=== PATIENT | female | born 1965 | race Caucasian/White ===

== ENCOUNTER 2021-10-11 11:27 | Day surgery (SDC) | payer MEDICARE, MEDICAID ==
[~2021-10-11 11:27] MED LIST: Albuterol 0.083% 2.5 MG/3 ML Neb Soln NEB PRN; Bupivacaine 0.5% 30 ML SDV ONE; HYDROmorphone 1 MG/ML Syringe IVPUSH PRN; Lactated Ringers 1,000 ML IV SCH; Lidocaine 2% Jelly 30 ML Tube ONE; Metoclopramide 10 MG/2 ML SDV IVPUSH PRN; Morphine 2 MG/ML SYRINGE IVPUSH PRN; Naloxone 0.4 MG/ML SDV IVPUSH PRN; Ondansetron 4 MG/2 ML SDV IVPUSH PRN; Sodium Chloride 0.9% 10 ML Syringe FLUSH PRN; Sodium Chloride 0.9% 2.5 ML Syringe FLUSH PRN; Sodium Chloride 0.9% 20 ML SDV IV PRN; fentaNYL 100 MCG/2 ML SDV IVPUSH PRN
[2021-10-11] MEDS ORDERED: fentaNYL 100 MCG/2 ML SDV ONE (12:11)
[2021-10-11] MEDS ORDERED: Propofol 200 MG/20 ML SDV ONE (12:11)
[2021-10-11] MEDS ORDERED: Ondansetron 4 MG/2 ML SDV ONE (13:18)
== END 2021-10-11 15:31 | disposition home or self-care (01) ==
LOC: MW.SDS 11:27
PROVIDERS: ATTEND Surgery
DX: D12.5 Benign neoplasm of sigmoid colon (principal); K64.4 Residual hemorrhoidal skin tags; F41.9 Anxiety disorder, unspecified; F32.A Depression, unspecified; F17.210 Nicotine dependence, cigarettes, uncomplicated; J44.9 Chronic obstructive pulmonary disease, unspecified; Z88.8 Allergy status to other drugs, medicaments and biological substances; Z98.890 Other specified postprocedural states
CPT/HCPCS: 00811; J1170; J2405; J2704; J3010; J3490; J7120

== ENCOUNTER 2021-11-24 09:53 | Day surgery (SDC) | payer MEDICARE, MEDICAID ==
[~2021-11-24 09:53] MED LIST changes: -Albuterol 0.083% 2.5 MG/3 ML Neb Soln NEB PRN; -Bupivacaine 0.5% 30 ML SDV ONE; -HYDROmorphone 1 MG/ML Syringe IVPUSH PRN; -Lidocaine 2% Jelly 30 ML Tube ONE; -Metoclopramide 10 MG/2 ML SDV IVPUSH PRN; -Morphine 2 MG/ML SYRINGE IVPUSH PRN; -Naloxone 0.4 MG/ML SDV IVPUSH PRN; -Ondansetron 4 MG/2 ML SDV IVPUSH PRN; +ceFAZolin 1 GM in Premix Bag 1 BAG IV ONE; -fentaNYL 100 MCG/2 ML SDV IVPUSH PRN
[2021-11-24] MEDS ORDERED: HYDROmorphone 1 MG/ML Syringe IVPUSH PRN (10:05)
[2021-11-24] MEDS ORDERED: Ondansetron 4 MG/2 ML SDV IVPUSH PRN (10:05)
[2021-11-24] MEDS ORDERED: fentaNYL 100 MCG/2 ML SDV IVPUSH PRN (10:05)
[2021-11-24] MEDS ORDERED: Albuterol 0.083% 2.5 MG/3 ML Neb Soln NEB PRN (10:05)
[2021-11-24] MEDS ORDERED: Metoclopramide 10 MG/2 ML SDV IVPUSH PRN (10:05)
[2021-11-24] MEDS ORDERED: Naloxone 0.4 MG/ML SDV IVPUSH PRN (10:05)
[2021-11-24] MEDS ORDERED: Bupivacaine 0.5% 10 ML SDV ONE (10:49)
[2021-11-24] MEDS ORDERED: fentaNYL 100 MCG/2 ML SDV ONE (10:52)
[2021-11-24] MEDS ORDERED: Propofol 200 MG/20 ML SDV ONE (10:52)
[2021-11-24] MEDS ORDERED: Rocuronium Bromide 50 MG/5 ML Syringe ONE (10:53)
[2021-11-24] MEDS ORDERED: Midazolam 1 MG/ML 2 ML SDV ONE (10:53)
[2021-11-24] MEDS ORDERED: Esmolol 100 MG/10 ML SDV ONE (10:53)
[2021-11-24] MEDS ORDERED: Dexmedetomidine 200 MCG/2 ML SDV ONE (10:53)
[2021-11-24] MEDS ORDERED: Water For Injection, Sterile 20 ML ONE (10:58)
[2021-11-24] MEDS ORDERED: Ropivacaine 0.5% 5 MG/ML 30 ML SDV ONE (11:17)
[2021-11-24] MEDS ORDERED: Bupivacaine 0.25% 10 ML SDV ONE (11:32)
[2021-11-24] MEDS ORDERED: Dexamethasone 4 MG/ML 5 ML MDV ONE (12:12)
[2021-11-24] MEDS ORDERED: Ketamine HCL/NACL, ISO-OSM 50 MG/5 ML Syringe ONE (12:13)
[2021-11-24] MEDS ORDERED: ePHEDrine 50 MG/ML SDV ONE (12:45)
[2021-11-24] MEDS ORDERED: Ondansetron 4 MG/2 ML SDV ONE (12:45)
[2021-11-24] MEDS ORDERED: Ketorolac 30 MG/ML SDV ONE (12:45)
[2021-11-24] MEDS ORDERED: Sugammadex Sodium 200 MG/2 ML VIAL ONE (12:45)
[2021-11-24] MEDS ORDERED: Octyl 2-Cyanoacrylate 1 Tube ONE (13:09)
== END 2021-11-24 14:39 | disposition home or self-care (01) ==
LOC: MW.SDS 09:53
PROVIDERS: ATTEND Surgery
DX: K40.20 Bilateral inguinal hernia, without obstruction or gangrene, not specified as recurrent (principal); J44.9 Chronic obstructive pulmonary disease, unspecified; F41.9 Anxiety disorder, unspecified; F32.A Depression, unspecified; F17.210 Nicotine dependence, cigarettes, uncomplicated; Z88.1 Allergy status to other antibiotic agents; Z87.19 Personal history of other diseases of the digestive system; Z86.010 Personal history of colon polyps; Z79.899 Other long term (current) drug therapy
CPT/HCPCS: 49505; A9270; J0690; J1100; J1885; J2250; J2405; J2704; J2795; J3010; J3490; J7120; 00830; 64488; C1781

== ENCOUNTER 2022-05-01 16:56 | Emergency (ER) | payer MEDICARE, MEDICAID | END 2022-05-01 17:40 | disposition left against medical advice (07) | LOC: MW.ED 16:56 | DX: Z53.21 Procedure and treatment not carried out due to patient leaving prior to being seen by health care provider (principal) ==

== ENCOUNTER 2022-06-20 17:46 | Emergency (ER) | payer MEDICARE, MEDICAID ==
[2022-06-20] MEDS ORDERED: predniSONE 20 MG Tab PO ONE (19:25)
== END 2022-06-20 19:39 | disposition home or self-care (01) ==
LOC: MW.ED 17:46
DX: R21 Rash and other nonspecific skin eruption (principal); B35.4 Tinea corporis; F17.210 Nicotine dependence, cigarettes, uncomplicated; Z88.1 Allergy status to other antibiotic agents; Z79.899 Other long term (current) drug therapy
CPT/HCPCS: 99282; A9270

== ENCOUNTER 2022-08-19 16:31 | Emergency (ER) | payer MEDICARE, MEDICAID ==
[2022-08-19] MEDS ORDERED: Betamethasone Dipropionate/Clotrimazole 0.05-1% Crm 15 GM Tube TOP STA (18:03)
[2022-08-19 18:30] LABS: CORONAVIRUS COVID-19 NAA NEGATIVE (NEGATIVE); INFLUENZA A NAA NEGATIVE (NEGATIVE); INFLUENZA B NAA NEGATIVE (NEGATIVE); RESPIRATORY SYNCYTIAL VIR NAA NEGATIVE (NEGATIVE)
== END 2022-08-19 19:21 | disposition home or self-care (01) ==
LOC: MW.ED 16:31
DX: B35.9 Dermatophytosis, unspecified (principal); F17.210 Nicotine dependence, cigarettes, uncomplicated; Z88.1 Allergy status to other antibiotic agents; Z20.822 Contact with and (suspected) exposure to COVID-19
CPT/HCPCS: 0241U; 36415; 71045; 82947; 85025; 99283